=== PATIENT | female | born 1990 | race American Indian/Alaskan Native ===

== ENCOUNTER 2019-12-26 09:02 | Emergency (ER) | payer OTHER ==
[~2019-12-26] VITALS: Ht 152.4 cm; Wt 53.5 kg
== END 2019-12-26 13:15 | disposition home or self-care (01) ==
LOC: ER 09:02
DX: B34.9 Viral infection, unspecified (principal); B96.0 Mycoplasma pneumoniae [M. pneumoniae] as the cause of diseases classified elsewhere

== ENCOUNTER 2023-12-01 11:38 | Inpatient (IN) | payer OTHER ==
[~2023-12-01] VITALS: Ht 152.4 cm; Wt 3.2 kg
[2023-12-01] MEDS ORDERED: PRENATAL TABLE1 EAC1 PO (12:17)
[2023-12-01 12:46] LABS: PH,URINE 7.5 (5.0-8.0); URINE APPEARANCE Clear; URINE BILIRRUBIN Negative (NEGATIVE); URINE BLOOD Negative; URINE COLOR Yellow; URINE GLUCOSE Negative (NEGATIVE); URINE LEUKOCYTE Large; URINE NITRATE Negative; URINE PROTEIN Negative (NEGATIVE)
[2023-12-01 12:46] LABS: HEMATOCRIT 39.7 % (36.0-45.00); HEMOGLOBIN 13.1 g/dL (12.0-15.00); MEAN CELL VOLUME 78.1 fL (80.00-100.00); MEAN CORPUSCULAR HEMOGLOBIN 25.9 pg (27.00-32.0); MEAN CORPUSCULAR HGB CONC 33.1 g/dl (32.0-36.0); PLATELET COUNT 186 K/uL (150-450); RED BLOOD COUNT 5.08 M/uL (4.00-6.00)
[2023-12-01 12:50] LABS: URINE BACTERIA 6902.9 uL (0.0-1933); URINE EPITHELIAL CELLS 74.4 uL (0.0-38.8); URINE RBC 2.1 uL (0.0-20.8); URINE WBC 28.2 uL (0.0-23.2)
[2023-12-01 13:20] LABS: INR 0.97; PARTIAL THROMBOPLASTIN TIME 31.6 SECONDS (22.0-34.0); PROTHROMBIN TIME 10.2 SECONDS (9.0-11.5)
== END 2023-12-04 14:19 | disposition home or self-care (01) | DRG 788 ==
LOC: LDR 11:38 → OB/GYN 11:38 → LDR 12:02 → O/R 15:59 → OB/GYN 16:58
PROVIDERS: ADMIT Obstetrics & Gynecology Obstetrics; ATTEND Obstetrics & Gynecology Obstetrics
PROC: 4A1HXCZ Monitoring of Products of Conception, Cardiac Rate, External Approach (ICD-10-PCS; 2023-12-01)
PROC: 10D00Z1 Extraction of Products of Conception, Low, Open Approach (ICD-10-PCS; principal; 2023-12-01 14:30)
DX: O34.211 Maternal care for low transverse scar from previous cesarean delivery (principal); Z3A.38 38 weeks gestation of pregnancy; Z37.0 Single live birth; Z20.822 Contact with and (suspected) exposure to COVID-19

== ENCOUNTER 2024-12-01 14:24 | Emergency (ER) | payer OTHER ==
[~2024-12-01] VITALS: Ht 152.4 cm; Wt 59.0 kg
[~2024-12-01 14:24] MED LIST: PRENATAL TABLE1 EAC1 PO
[2024-12-01 18:12] LABS: HEMATOCRIT 42.1 % (36.0-45.00); HEMOGLOBIN 14.1 g/dL (12.0-15.00); MEAN CELL VOLUME 77.5 fL (80.00-100.00); MEAN CORPUSCULAR HEMOGLOBIN 25.9 pg (27.00-32.0); MEAN CORPUSCULAR HGB CONC 33.5 g/dl (32.0-36.0); PLATELET COUNT 216 K/uL (150-450); RED BLOOD COUNT 5.43 M/uL (4.00-6.00); RED CELL DISTRIBUTION WIDTH 15.2 % (11.5-14.5)
[2024-12-01] MEDS ORDERED: OSEL75CA PO (19:27)
[2024-12-01] MEDS ORDERED: ACETAMINOPHEN500 M1 PO (19:27)
[2024-12-01] MEDS ORDERED: GILTUSS COUGH-118 M1 PO (19:27)
== END 2024-12-01 19:43 | disposition home or self-care (01) ==
LOC: ER 14:26
PROVIDERS: Preventive Medicine Public Health & General Preventive Medicine
DX: J10.1 Influenza due to other identified influenza virus with other respiratory manifestations (principal); Z20.822 Contact with and (suspected) exposure to COVID-19; Z88.6 Allergy status to analgesic agent